=== PATIENT | male | born 1980 | race Caucasian/White ===

== ENCOUNTER 2016-10-17 20:45 | Emergency (ER) | payer MEDICARE, SELFPAY ==
[2016-10-17] MEDS ORDERED: cloNIDine HCl 0.1 MG TAB ONE (21:33)
[2016-10-17] MEDS ORDERED: Ondansetron ODT 4 MG TAB ONE (21:33)
[2016-10-17] MEDS ORDERED: Triple Antibiotic Oint 1 GM Packet ONE (21:33)
[2016-10-17] MEDS ORDERED: HYDROcodone/Acetaminophen 10/325 mg Tablet ONE (21:33)
[2016-10-17] MEDS ORDERED: Naproxen 500 MG TAB ONE (21:33)
[2016-10-17 21:52] LABS: #Basophils 0.1 thou/uL (0.0-0.2); #Eosinphils 0.4 thou/uL (0.0-0.7); #Lymphocytes 1.5 thou/uL (1.20-3.40); #Monocytes 0.8 thou/uL (0.11-0.59); #Neutrophils 10.2 thou/uL (1.40-6.50); %Basophils 0.6 % (0.0-1.0); %Eosinophils 3.4 % (0.0-10.0); %Lymphocytes 11.5 % (21.0-51.0); %Monocytes 6.4 % (0.0-10.0); %Neutrophils 78.1 % (42.0-75.0); Hemoglobin 15.2 g/dL (14.0-18.0); Mean Corpuscular HGB CONC 31.9 g/dL (32.0-36.0); Mean Corpuscular Hemoglobin 29.4 pg (27.0-31.0); Mean Corpuscular Volume 92.2 fl (80.0-94.0); Platelet Count 182 thou/uL (130-400); RBC Distribution Width 12.9 % (11.5-14.5); Red Blood Cell (RBC) Count 5.17 mill/uL (4.70-6.10)
--- NOTE | 2016-10-17 21:57 | CT ---
CT HEAD WITHOUT IV CONTRAST 10/17/16 HISTORY: Patient fell off a ladder approximately ten feet. Patient keeps repeating things. FINDINGS: There is no evidence of a hemorrhage, acute infarction, mass effect or midline shift. Scattered area s of decreased attenuation in the periventricular white matter which are nonspecific but likely refl ective of chronic small vessel ischemic changes. There is minimal mucosal thickening seen in each maxillary antrum. The remainder of the visualized p aranasal sinuses and right mastoid air cells are clear. There are postsurgical changes related to le ft mastoidectomy. No calvarial fracture is seen. IMPRESSION: 1. No acute intracranial abnormalities demonstrated. 2. Chronic small vessel ischemic changes. 3. Minimal sinus disease. POS: [facility]
--- NOTE | 2016-10-17 22:01 | CT ---
CT SCAN CERVICAL SPINE WITHOUT IV CONTRAST 10/17/16 HISTORY: Patient fell off a 10 foot ladder. Patient keeps repeating himself. TECHNIQUE: Contiguous axial CT images are obtained through the cervical spine from the skull base to the T2-3 l evel. Sagittal and coronal reformat images are provided. FINDINGS: There is minimal mucosal thickening seen in each maxillary antrum. Prevertebral soft tissues are wit hin normal limits. Lung apices are clear. Postsurgical changes related to left mastoidectomy are partially imaged. Vertebral body heights and intervertebral disc spaces are within normal limits. No fracture or subluxation is seen involving th e cervical spine. There are scattered anterior osteophytes seen in the cervical spine. There is stra ightening of the normal cervical lordotic curvature which may be related to muscle spasm or position ing. IMPRESSION: 1. No acute fracture or subluxation involving the cervical spine. 2. Minimal degenerative changes in the cervical spine. 3. Straightening of the normal cervical lordotic curvature which may be related to muscle spasm or positioning. POS: [facility]
--- NOTE | 2016-10-17 22:13 | CT ---
CT OF THE LUMBAR SPINE 10/17/16 COMPARISON: None. HISTORY: Fall, pain. TECHNIQUE: Serial axial CT imaging obtained at 2.5 mm intervals from the thoracolumbar junction through the mid sacrum without contrast. Coronal and sagittal reformatted imaging obtained. FINDINGS: Imaged nonosseous structures are grossly unremarkable aside from stranding of the subcutaneous fat p osteriorly at the axial level of the lumbosacral junction, right greater than left, suggesting subcu taneous fat contusion associated with recent fall. There are five lumbar type vertebral bodies. The vertebral body alignment appears normal within the lumbar spine. There is minimal anterior wedging of the T12 vertebral body, likely either physiologic in nature or associated with remote fracture. No acute fracture line is seen and there is no parasp inal soft tissue swelling. There is no evidence for an acute fracture within the lumbar spine. Assessment for central canal and/or neural foraminal stenosis is limited on routine CT. There are de generative end plate changes present at the L4-5 level, especially laterally on the right, with foca l subchondral sclerosis, osteophyte formation, and vacuum disc formation. There is no osseous cause of significant central canal stenosis within the lumbar spine. There is os teophyte extension into the right neural foramen at L4-5 with an associated at least mild degree of neural foraminal stenosis. IMPRESSION: Findings suggesting posttraumatic edema within the subcutaneous fat at the lumbosacral junction post eriorly, right greater than left. There is no evidence for an acute fracture within the lumbar spine . Mild anterior wedging of the T12 vertebral body as detailed above. POS: [facility]
[2016-10-17 22:16] LABS: Bilirubin Negative (Negative); Clarity Clear (Clear); Glucose, Urine (Dipstick) Negative (Negative); Leukocyte Negative (Negative); Nitrite Negative (Negative); Protein, Urine (Dipstick) Negative (Neg-Trace); Urobilinogen 0.2 mg/dL (0.2-1.0); pH, Urine 6.5 (5.0-9.0)
[2016-10-17 22:17] LABS: Blood, Urine Trace (Negative)
[2016-10-17 22:22] LABS: Bacteria/HPF 1+ HPF (None Seen); Crystals/HPF 1+ URIC ACID HPF (Negative); Squamous Epithelial 0-3 HPF (0-3); WBC/HPF None Seen HPF (0-3)
[2016-10-17] MEDS ORDERED: Cephalexin 500 MG CAP ONE (22:39)
== END 2016-10-17 23:00 | disposition home or self-care (01) ==
LOC: MADERS 20:45
DX: S06.0X0A Concussion without loss of consciousness, initial encounter (principal); S30.0XXA Contusion of lower back and pelvis, initial encounter; I10 Essential (primary) hypertension; E11.9 Type 2 diabetes mellitus without complications; F17.220 Nicotine dependence, chewing tobacco, uncomplicated; Z79.899 Other long term (current) drug therapy; W17.89XA Other fall from one level to another, initial encounter
CPT/HCPCS: 36415; 70450; 72125; 72131; 81001; 83690; 85025; Q0162

== ENCOUNTER 2016-11-20 09:29 | Emergency (ER) | payer MEDICARE ==
[2016-11-20 10:13] LABS: #Basophils 0.1 thou/uL (0.0-0.2); #Eosinphils 0.5 thou/uL (0.0-0.7); #Lymphocytes 2.7 thou/uL (1.20-3.40); #Neutrophils 5.8 thou/uL (1.40-6.50); %Basophils 1.5 % (0.0-1.0); %Lymphocytes 26.5 % (21.0-51.0); %Monocytes 9.6 % (0.0-10.0); %Neutrophils 57.5 % (42.0-75.0); Hemoglobin 14.3 g/dL (14.0-18.0); Mean Corpuscular HGB CONC 32.7 g/dL (32.0-36.0); Mean Corpuscular Hemoglobin 30.4 pg (27.0-31.0); Mean Platelet Volume 10.9 fL (7.4-10.4); Platelet Count 192 thou/uL (130-400); RBC Distribution Width 12.9 % (11.5-14.5); Red Blood Cell (RBC) Count 4.71 mill/uL (4.70-6.10)
[2016-11-20 10:24] LABS: ALT (SGPT) 25 U/L (8-55); AST (SGOT) 21 U/L (5-34); Albumin 4.1 g/dL (3.5-5.0); Alkaline Phosphatase 82 U/L (40-150); Anion Gap 13 mmol/L (10-20); BUN (Urea Nitrogen) 19 mg/dL (8.9-20.6); Bilirubin, Total 0.5 mg/dL (0.2-1.2); Calc. Creatinine Clearance 0 mL/min (70-130); Calcium 9.4 mg/dL (7.8-10.44); Carbon Dioxide 28 mmol/L (22-29); Chloride 100 mmol/L (98-107); Estimated GFR-MDRD 86; Globulin 2.7 g/dL (2.4-3.5); Glucose 95 mg/dL (70-105); Magnesium 2.1 mg/dL (1.6-2.6); Phosphorus 3.6 mg/dL (2.3-4.7); Protein, Total 6.8 g/dL (6.0-8.3); Sodium 137 mmol/L (136-145)
--- NOTE | 2016-11-20 10:40 | RAD ---
TWO VIEWS CHEST HISTORY: Hypertension. COMPARISON: 04/02/2010 FINDINGS: Normal cardiac silhouette. Pulmonary vessels and hilum are normal. No mass. No consolidation. No pneumothorax or osseous abnormalities. IMPRESSION: No acute cardiopulmonary process. POS: [facility]
[2016-11-20 10:43] LABS: CKMB 3.5 ng/mL (0-6.6); Troponin I Less than 0.010 ng/mL (< 0.028)
== END 2016-11-20 11:50 | disposition home or self-care (01) ==
LOC: MADERS 09:29
DX: I49.9 Cardiac arrhythmia, unspecified (principal); H91.92 Unspecified hearing loss, left ear; I10 Essential (primary) hypertension; E11.9 Type 2 diabetes mellitus without complications; F17.220 Nicotine dependence, chewing tobacco, uncomplicated; Z79.899 Other long term (current) drug therapy
CPT/HCPCS: 71020; 80053; 82553; 83735; 83880; 84100; 84443; 84484; 85025; 93005

== ENCOUNTER 2017-09-24 11:03 | Emergency (ER) | payer MEDICAID, MEDICARE ==
[2017-09-24] MEDS ORDERED: Ibuprofen 800 MG TAB ONE (11:24)
[2017-09-24] MEDS ORDERED: Lisinopril 10 MG TAB ONE (11:24)
[2017-09-24] MEDS ORDERED: HYDROcodone/Acetaminophen 5/325 mg Tablet ONE (11:24)
[2017-09-24] MEDS ORDERED: Clindamycin 150 MG CAP ONE (11:24)
== END 2017-09-24 11:20 | disposition home or self-care (01) ==
LOC: MADERS 11:03
DX: K02.9 Dental caries, unspecified (principal)
CPT/HCPCS: 99282

== ENCOUNTER 2017-11-08 23:24 | Emergency (ER) | payer MEDICARE ==
[2017-11-08 23:37] LABS: #Basophils 0.1 thou/uL (0.0-0.2); #Eosinphils 0.5 thou/uL (0.0-0.7); #Lymphocytes 2.9 thou/uL (1.20-3.40); #Monocytes 0.7 thou/uL (0.11-0.59); #Neutrophils 7.5 thou/uL (1.40-6.50); %Basophils 0.9 % (0.0-1.0); %Eosinophils 4.5 % (0.0-10.0); %Lymphocytes 24.8 % (21.0-51.0); %Monocytes 5.6 % (0.0-10.0); %Neutrophils 64.2 % (42.0-75.0); Hemoglobin 14.8 g/dL (14.0-18.0); Mean Corpuscular HGB CONC 33.4 g/dL (32.0-36.0); Mean Corpuscular Hemoglobin 29.9 pg (27.0-31.0); Mean Corpuscular Volume 89.5 fL (78.0-98.0); Mean Platelet Volume 9.1 fL (7.4-10.4); Platelet Count 219 thou/uL (130-400); RBC Distribution Width 12.3 % (11.5-14.5); Red Blood Cell (RBC) Count 4.95 mill/uL (4.70-6.10); White Blood Cell (WBC) Count 11.7 thou/uL (4.8-10.8)
[2017-11-08 23:53] LABS: Anion Gap 18 mmol/L (10-20); BUN (Urea Nitrogen) 10 mg/dL (8.9-20.6); Calc. Creatinine Clearance 0 mL/min (70-130); Carbon Dioxide 20 mmol/L (22-29); Chloride 105 mmol/L (98-107); Estimated GFR-MDRD Greater than 90; Glucose 116 mg/dL (70-105); Potassium 3.5 mmol/L (3.5-5.1); Sodium 139 mmol/L (136-145)
--- NOTE | 2017-11-08 23:57 | RAD ---
FRONTAL VIEW CHEST: 11/08/17 INDICATION: Chest pain. COMPARISON: 11/20/16. FINDINGS: The cardiac silhouette is stable, and prominent in size. there is no new consolidation or effusion. Mild elevation of the left hemidiaphragm. There is a linear radiopaque density, subcentimeter in size overlying the right hemidiaphragm, not further localized. IMPRESSION: Enlarged cardiac silhouette. Correlate clinically. No focal consolidation. POS: [facility]
[2017-11-09 00:09] LABS: ALT (SGPT) 54 U/L (8-55); AST (SGOT) 32 U/L (5-34); Albumin 4.1 g/dL (3.5-5.0); Alkaline Phosphatase 85 U/L (40-150); Anion Gap 18 mmol/L (10-20); BUN (Urea Nitrogen) 10 mg/dL (8.9-20.6); Bilirubin, Total Less than 0.2 mg/dL (0.2-1.2); Calc. Creatinine Clearance 0 mL/min (70-130); Carbon Dioxide 20 mmol/L (22-29); Chloride 105 mmol/L (98-107); Estimated GFR-MDRD Greater than 90; Globulin 2.5 g/dL (2.4-3.5); Glucose 117 mg/dL (70-105); Potassium 3.5 mmol/L (3.5-5.1); Protein, Total 6.6 g/dL (6.0-8.3); Sodium 139 mmol/L (136-145)
== END 2017-11-09 00:16 | disposition home or self-care (01) ==
LOC: MADERS 23:24
DX: R07.9 Chest pain, unspecified (principal); F17.220 Nicotine dependence, chewing tobacco, uncomplicated; I10 Essential (primary) hypertension; I49.9 Cardiac arrhythmia, unspecified; Z79.899 Other long term (current) drug therapy
CPT/HCPCS: 71045; 80048; 84484; 85025; 93005

== ENCOUNTER 2017-12-13 06:18 | Emergency (ER) | payer MEDICARE ==
[2017-12-13] MEDS ORDERED: Clindamycin 150 MG CAP ONE (07:57)
[2017-12-13] MEDS ORDERED: Fluconazole 100 MG TAB ONE (07:57)
== END 2017-12-13 08:14 | disposition home or self-care (01) ==
LOC: MADERS 06:18
DX: B37.2 Candidiasis of skin and nail (principal); L03.314 Cellulitis of groin; I49.9 Cardiac arrhythmia, unspecified; F17.220 Nicotine dependence, chewing tobacco, uncomplicated; Z79.899 Other long term (current) drug therapy
CPT/HCPCS: 99283

== ENCOUNTER 2018-02-27 03:14 | Emergency (ER) | payer MEDICARE ==
[2018-02-27] MEDS ORDERED: Ibuprofen 800 MG TAB ONE (03:47)
[2018-02-27] MEDS ORDERED: cloNIDine 0.1mg/24 Hour PATCH ONE (03:49)
[2018-02-27] MEDS ORDERED: Amoxicillin/Potassium Clav 875 MG TAB ONE (03:49)
[2018-02-27] MEDS ORDERED: cloNIDine 0.1 MG TAB ONE (03:50)
== END 2018-02-27 04:10 | disposition home or self-care (01) ==
LOC: MADERS 03:14
DX: K02.9 Dental caries, unspecified (principal); I49.9 Cardiac arrhythmia, unspecified; I10 Essential (primary) hypertension; F17.220 Nicotine dependence, chewing tobacco, uncomplicated; Z79.899 Other long term (current) drug therapy
CPT/HCPCS: 99282

== ENCOUNTER 2018-03-14 03:02 | Emergency (ER) | payer MEDICARE ==
[2018-03-14] MEDS ORDERED: Ketorolac Tromethamine 30 MG/ML VIAL ONE (03:34)
== END 2018-03-14 03:57 | disposition home or self-care (01) ==
LOC: MADERS 03:02
DX: K02.9 Dental caries, unspecified (principal); I10 Essential (primary) hypertension; I49.9 Cardiac arrhythmia, unspecified; F17.220 Nicotine dependence, chewing tobacco, uncomplicated; Z79.899 Other long term (current) drug therapy
CPT/HCPCS: 96372; J1885

== ENCOUNTER 2018-07-03 04:41 | Emergency (ER) | payer MEDICARE | END 2018-07-03 05:14 | disposition home or self-care (01) | LOC: MADERS 04:41 | DX: L23.7 Allergic contact dermatitis due to plants, except food (principal); I10 Essential (primary) hypertension; I49.9 Cardiac arrhythmia, unspecified; F17.220 Nicotine dependence, chewing tobacco, uncomplicated; Z79.899 Other long term (current) drug therapy | CPT/HCPCS: 99282 ==

== ENCOUNTER 2019-09-15 01:35 | Emergency (ER) | payer MEDICARE ==
[2019-09-15] MEDS ORDERED: Ventolin HFA Inhaler 60 PUFF INHALER ONE (01:58)
[2019-09-15] MEDS ORDERED: Nitroglycerin 50 MG/250 ML BOT 250 ML ONE (02:14)
[2019-09-15] MEDS ORDERED: Aspirin 325 MG TAB ONE (02:14)
[2019-09-15] MEDS ORDERED: Furosemide 20 MG/2 ML VIAL ONE (02:14)
[2019-09-15] MEDS ORDERED: Furosemide 40 MG/4 ML VIAL ONE (02:14)
[2019-09-15 02:18] LABS: #Basophils 0.2 thou/uL (0.0-0.2); #Eosinphils 0.9 thou/uL (0.0-0.7); #Lymphocytes 3.1 thou/uL (1.20-3.40); #Monocytes 1.2 thou/uL (0.11-0.59); #Neutrophils 8.2 thou/uL (1.40-6.50); %Basophils 1.3 % (0.0-1.0); %Eosinophils 6.8 % (0.0-10.0); %Monocytes 8.5 % (0.0-10.0); %Neutrophils 60.4 % (42.0-75.0); Hemoglobin 14.8 g/dL (14.0-18.0); Mean Corpuscular HGB CONC 31.3 g/dL (32.0-36.0); Mean Corpuscular Hemoglobin 29.2 pg (27.0-31.0); Mean Corpuscular Volume 93.2 fL (78.0-98.0); Mean Platelet Volume 10.7 fL (7.4-10.4); Platelet Count 288 thou/uL (130-400); RBC Distribution Width 13.6 % (11.5-14.5); Red Blood Cell (RBC) Count 5.09 mill/uL (4.70-6.10); White Blood Cell (WBC) Count 13.6 thou/uL (4.8-10.8)
[2019-09-15 02:28] LABS: Acetaminophen Less than 6.0 mcg/mL (10.0-30.0); Salicylate Less than 8.0 mg/dL (15.0-30.0)
[2019-09-15 02:30] LABS: ALT (SGPT) 48 U/L (8-55); AST (SGOT) 27 U/L (5-34); Albumin 4.1 g/dL (3.5-5.0); Alkaline Phosphatase 105 U/L (40-110); Anion Gap 18 mmol/L (10-20); BUN (Urea Nitrogen) 12 mg/dL (8.9-20.6); Bilirubin, Total 0.2 mg/dL (0.2-1.2); Calc. Creatinine Clearance 0 mL/min (70-130); Carbon Dioxide 23 mmol/L (22-29); Chloride 102 mmol/L (98-107); Estimated GFR-MDRD 67; Glucose 102 mg/dL (70-105); Lipase 22 U/L (8-78); Potassium 3.8 mmol/L (3.5-5.1); Protein, Total 7.1 g/dL (6.0-8.3); Sodium 139 mmol/L (136-145)
[2019-09-15 02:45] LABS: Amphetamine Not Detected (NotDetected); Barbiturates Screen Not Detected (NotDetected); Benzodiazepine Screen Not Detected (NotDetected); Cocaine Metabolite Screen Not Detected (NotDetected); Medtox Control Line Valid? VALID (VALID); Methadone Not Detected (NotDetected); Methamphetamine Not Detected (NotDetected); Opiate Screen Not Detected (NotDetected); Oxycodone Screen Not Detected (NotDetected); Phencyclidine (PCP) Not Detected (NotDetected); THC/Cannabinoid Screen Not Detected (NotDetected); Tricyclic Screen Not Detected (NotDetected)
[2019-09-15 02:46] LABS: Bilirubin Negative (Negative); Blood, Urine Trace (Negative); Clarity Clear (Clear); Glucose, Urine (Dipstick) Negative (Negative); Leukocyte Negative (Negative); Nitrite Negative (Negative); Protein, Urine (Dipstick) Negative (Neg-Trace); Urobilinogen 0.2 mg/dL (Less than 2)
[2019-09-15 02:52] LABS: Alcohol Less than 10 mg/dL (Less than 10)
[2019-09-15 02:53] LABS: RBC/HPF 0-3 HPF (0-3); Squamous Epithelial 0-3 HPF (0-3); WBC/HPF 0-3 HPF (0-3)
[2019-09-15 02:54] LABS: Bacteria/HPF None Seen HPF (None Seen)
[2019-09-15] MEDS ORDERED: methylPREDNISolone Sod Succ/PF 125 MG/2 ML VIAL ONE (02:56)
[2019-09-15] MEDS ORDERED: cefTRIAXone\\ROCEPHIN 1 GM VIAL ONE (02:56)
--- NOTE | 2019-09-15 07:51 | RAD ---
RADIOGRAPH CHEST 2 VIEW: DATE: 09/15/2019 HISTORY: 38-year-old male with dyspnea, cough, and wheezing FINDINGS: The thoracic aorta is mildly tortuous and ectatic, greater than typical for age. There is no evidence of airspace density, pulmonary edema, or pneumothorax. There is no pleural effusion. Transverse diameter of cardiac shadow at upper limits of normal. IMPRESSION: 1) No acute pulmonary findings. 2) ectasia of thoracic aorta.
== END 2019-09-15 03:34 | disposition short-term general hospital (02) ==
LOC: MADERS 01:35
DX: J81.0 Acute pulmonary edema (principal); R94.31 Abnormal electrocardiogram [ECG] [EKG]; I10 Essential (primary) hypertension; I49.9 Cardiac arrhythmia, unspecified; K02.9 Dental caries, unspecified; K03.81 Cracked tooth; F17.220 Nicotine dependence, chewing tobacco, uncomplicated; Z79.899 Other long term (current) drug therapy
CPT/HCPCS: 71046; 80053; 80306; 80307; 81003; 81015; 83690; 83880; 84443; 84484; 85025; 85379; 93005; 94760; 96365; 96375; J0696; J1940; J2930

== ENCOUNTER 2019-10-03 05:13 | Emergency (ER) | payer MEDICARE, OTHER ==
[2019-10-03] MEDS ORDERED: predniSONE 20 MG TAB ONE (05:35)
[2019-10-03 06:49] LABS: #Basophils 0.1 thou/uL (0.0-0.2); #Eosinphils 0.9 thou/uL (0.0-0.7); #Lymphocytes 2.2 thou/uL (1.20-3.40); #Neutrophils 9.3 thou/uL (1.40-6.50); %Basophils 0.7 % (0.0-1.0); %Eosinophils 6.7 % (0.0-10.0); %Lymphocytes 16.2 % (21.0-51.0); %Monocytes 7.6 % (0.0-10.0); %Neutrophils 68.8 % (42.0-75.0); Hemoglobin 13.3 g/dL (14.0-18.0); Mean Corpuscular HGB CONC 32.1 g/dL (32.0-36.0); Mean Corpuscular Hemoglobin 29.8 pg (27.0-31.0); Mean Corpuscular Volume 92.8 fL (78.0-98.0); Mean Platelet Volume 10.2 fL (7.4-10.4); Platelet Count 231 thou/uL (130-400); Red Blood Cell (RBC) Count 4.47 mill/uL (4.70-6.10); White Blood Cell (WBC) Count 13.5 thou/uL (4.8-10.8)
[2019-10-03 06:59] LABS: ALT (SGPT) 44 U/L (8-55); AST (SGOT) 28 U/L (5-34); Alkaline Phosphatase 84 U/L (40-110); Anion Gap 17 mmol/L (10-20); BUN (Urea Nitrogen) 15 mg/dL (8.9-20.6); Bilirubin, Total 0.2 mg/dL (0.2-1.2); Calc. Creatinine Clearance 0 mL/min (70-130); Carbon Dioxide 23 mmol/L (22-29); Chloride 107 mmol/L (98-107); Estimated GFR-MDRD 72; Globulin 2.2 g/dL (2.4-3.5); Glucose 109 mg/dL (70-105); Potassium 3.8 mmol/L (3.5-5.1); Protein, Total 6.2 g/dL (6.0-8.3); Sodium 143 mmol/L (136-145)
--- NOTE | 2019-10-03 08:14 | RAD ---
PORTABLE CHEST: HISTORY: Cough. COMPARISON: 2018 FINDINGS: Lungs appear clear. No focal infiltrates seen. Heart size upper normal and stable. IMPRESSION: No acute process or interval change apparent. POS: [facility]
[2019-10-04 13:53] LABS: SARS-CoV-2 MS2 Positive; SARS-CoV-2 N Gene Negative; SARS-CoV-2 S Gene Negative; SARS-CoV-2 by NAA Not Detected (NotDetected); SARS-CoV-2 orf1ab Negative
== END 2019-10-03 07:20 | disposition home or self-care (01) ==
LOC: MADERS 05:13
DX: J44.1 Chronic obstructive pulmonary disease with (acute) exacerbation (principal); I10 Essential (primary) hypertension; I49.9 Cardiac arrhythmia, unspecified; Z11.59 Encounter for screening for other viral diseases; Z79.899 Other long term (current) drug therapy; F17.220 Nicotine dependence, chewing tobacco, uncomplicated
CPT/HCPCS: 71045; 80053; 85025; 99285; U0003; 87635; J7512; J7620

== ENCOUNTER 2019-12-13 00:46 | Emergency (ER) | payer MEDICARE ==
[2019-12-13] MEDS ORDERED: predniSONE 20 MG TAB ONE (01:01)
[2019-12-13] MEDS ORDERED: Sodium Chloride For Inhalation 0.9% 3 ML NEB ONE (01:49)
[2019-12-13] MEDS ORDERED: Albuterol Sulfate 2.5 mg/0.5 ml Neb ONE (01:49)
[2019-12-13] MEDS ORDERED: methylPREDNISolone Sod Succ/PF 125 MG/2 ML VIAL ONE (03:00)
[2019-12-13 03:09] LABS: #Basophils 0.1 thou/uL (0.0-0.2); #Eosinphils 0.8 thou/uL (0.0-0.7); #Lymphocytes 1.4 thou/uL (1.20-3.40); #Monocytes 0.8 thou/uL (0.11-0.59); #Neutrophils 9.8 thou/uL (1.40-6.50); %Basophils 0.7 % (0.0-1.0); %Eosinophils 5.9 % (0.0-10.0); %Lymphocytes 10.6 % (21.0-51.0); %Monocytes 6.1 % (0.0-10.0); %Neutrophils 76.8 % (42.0-75.0); Hemoglobin 14.1 g/dL (14.0-18.0); Mean Corpuscular HGB CONC 32.2 g/dL (32.0-36.0); Mean Corpuscular Hemoglobin 30.2 pg (27.0-31.0); Mean Corpuscular Volume 93.9 fL (78.0-98.0); Mean Platelet Volume 9.9 fL (7.4-10.4); Platelet Count 219 thou/uL (130-400); RBC Distribution Width 13.3 % (11.5-14.5); Red Blood Cell (RBC) Count 4.67 mill/uL (4.70-6.10); White Blood Cell (WBC) Count 12.7 thou/uL (4.8-10.8)
[2019-12-13] MEDS ORDERED: Magnesium 2 GM/50 ML BAG (IN WATER) ONE (03:09)
[2019-12-13 03:22] LABS: ALT (SGPT) 48 U/L (8-55); AST (SGOT) 29 U/L (5-34); Albumin 4.1 g/dL (3.5-5.0); Alkaline Phosphatase 90 U/L (40-110); Anion Gap 14 mmol/L (10-20); BUN (Urea Nitrogen) 13 mg/dL (8.9-20.6); Bilirubin, Total 0.4 mg/dL (0.2-1.2); Calc. Creatinine Clearance 0 mL/min (70-130); Calcium 8.9 mg/dL (7.8-10.44); Carbon Dioxide 27 mmol/L (22-29); Chloride 102 mmol/L (98-107); Globulin 2.7 g/dL (2.4-3.5); Glucose 120 mg/dL (70-105); Potassium 4.1 mmol/L (3.5-5.1); Protein, Total 6.8 g/dL (6.0-8.3); Sodium 139 mmol/L (136-145)
--- NOTE | 2019-12-13 08:09 | RAD ---
XR Chest 1 View Portable HISTORY: Dyspnea COMPARISON: 10/03/2019 FINDINGS: The heart size is at upper limits of normal. The lungs are well expanded without focal area s of consolidation, pneumothorax or pleural effusions. IMPRESSION: No radiographic evidence of acute cardiopulmonary process.
== END 2019-12-13 04:20 | disposition short-term general hospital (02) ==
LOC: MADERS 00:46
DX: J44.1 Chronic obstructive pulmonary disease with (acute) exacerbation (principal); I10 Essential (primary) hypertension; F17.220 Nicotine dependence, chewing tobacco, uncomplicated; Z79.899 Other long term (current) drug therapy
CPT/HCPCS: 71045; 80053; 83880; 84484; 85025; 96365; 96375; J2930; J3475; J7512; J7611; J7620

== ENCOUNTER 2020-03-10 09:57 | Outpatient (CLI) | payer MEDICARE ==
[2020-03-10 10:39] LABS: ALT (SGPT) 40 U/L (8-55); AST (SGOT) 26 U/L (5-34); Albumin 4.1 g/dL (3.5-5.0); Alkaline Phosphatase 87 U/L (40-110); Anion Gap 16 mmol/L (10-20); BUN (Urea Nitrogen) 11 mg/dL (8.9-20.6); Bilirubin, Total 0.4 mg/dL (0.2-1.2); Calc. Creatinine Clearance 0 mL/min (70-130); Calcium 9.4 mg/dL (7.8-10.44); Carbon Dioxide 24 mmol/L (22-29); Chloride 103 mmol/L (98-107); Globulin 2.8 g/dL (2.4-3.5); Glucose 138 mg/dL (70-105); Potassium 3.7 mmol/L (3.5-5.1); Protein, Total 6.9 g/dL (6.0-8.3); Sodium 139 mmol/L (136-145)
== END 2020-03-10 09:58 | disposition home or self-care (01) ==
LOC: MADLAB 09:57
PROVIDERS: ATTEND Family Medicine
DX: I10 Essential (primary) hypertension (principal)
CPT/HCPCS: 36415; 80053

== ENCOUNTER 2020-05-14 20:21 | Emergency (ER) | payer MEDICARE ==
[2020-05-14] MEDS ORDERED: methylPREDNISolone Sod Succ/PF 125 MG/2 ML VIAL ONE (21:05)
--- NOTE | 2020-05-14 21:25 | RAD ---
RADIOGRAPH CHEST 2 VIEW: DATE: 05/14/2020 HISTORY: 39-year-old male with dyspnea COMPARISON: 12/13/2019 FINDINGS: The thoracic aorta is tortuous and ectatic. There is no evidence of airspace density, pulmonary edema , or pneumothorax. There is no pleural effusion. Cardiac size at upper limits of normal. No interval change. IMPRESSION: 1) No acute pulmonary findings. 2) ectasia of thoracic aorta.
[2020-05-14 21:40] LABS: #Basophils 0.1 thou/uL (0.0-0.2); #Eosinphils 1.1 thou/uL (0.0-0.7); %Eosinophils 7.8 % (0.0-10.0); Hemoglobin 15.3 g/dL (14.0-18.0); Mean Corpuscular Volume 90.6 fL (78.0-98.0)
[2020-05-14 21:55] LABS: #Lymphocytes 2.8 thou/uL (1.20-3.40); #Neutrophils 8.6 thou/uL (1.40-6.50); %Basophils 0.7 % (0.0-1.0); %Lymphocytes 20.8 % (21.0-51.0); %Monocytes 7.3 % (0.0-10.0); %Neutrophils 63.4 % (42.0-75.0); Mean Corpuscular HGB CONC 32.1 g/dL (32.0-36.0); Mean Platelet Volume 10.5 fL (7.4-10.4); Platelet Count 223 thou/uL (130-400); RBC Distribution Width 12.3 % (11.5-14.5); Red Blood Cell (RBC) Count 5.26 mill/uL (4.70-6.10); White Blood Cell (WBC) Count 13.5 thou/uL (4.8-10.8)
[2020-05-14 21:56] LABS: ALT (SGPT) 37 U/L (8-55); AST (SGOT) 25 U/L (5-34); Alkaline Phosphatase 105 U/L (40-110); Anion Gap 13 mmol/L (10-20); BUN (Urea Nitrogen) 14 mg/dL (8.9-20.6); Bilirubin, Total 0.2 mg/dL (0.2-1.2); Calc. Creatinine Clearance 0 mL/min (70-130); Calcium 9.5 mg/dL (7.8-10.44); Carbon Dioxide 31 mmol/L (22-29); Chloride 100 mmol/L (98-107); Globulin 2.8 g/dL (2.4-3.5); Glucose 108 mg/dL (70-105); Potassium 3.5 mmol/L (3.5-5.1); Protein, Total 6.8 g/dL (6.0-8.3); Sodium 140 mmol/L (136-145)
[2020-05-14 22:22] LABS: Base Excess-Venous 5.7 mmol/L (-2.0 to 3.0); Bicarbonate (HCO3v) 31.8 mmol/L (22.0-28.0); CO2 Tension (PvCO2) 49.9 mmHg (40.0-50.0); Calcium, Ionized 1.17 mmol/L (1.15-1.33); Chloride 100 mmol/L (98-107); Hemoglobin - Calc 15.7 g/dL (14.0-18.0); Potassium 3.5 mmol/L (3.5-5.1); Sodium 140 mmol/L (138-145); T. Carbon Dioxide 33.3 mmol/L (22.0-28.0); vO2 Saturation-calc 99.8 % (60.0-85.0)
== END 2020-05-14 23:06 | disposition home or self-care (01) ==
LOC: MADERS 20:21
DX: J44.1 Chronic obstructive pulmonary disease with (acute) exacerbation (principal); I10 Essential (primary) hypertension; I49.9 Cardiac arrhythmia, unspecified; F17.220 Nicotine dependence, chewing tobacco, uncomplicated; Z79.899 Other long term (current) drug therapy
CPT/HCPCS: 71046; 80053; 82330; 82803; 83880; 84484; 85014; 85025; 96374; J2930; J7620

== ENCOUNTER 2020-11-11 00:22 | Emergency (ER) | payer MEDICARE ==
[2020-11-11] MEDS ORDERED: Fluconazole 100 MG TAB ONE (01:30)
== END 2020-11-11 01:58 | disposition home or self-care (01) ==
LOC: MADERS 00:22
DX: B35.6 Tinea cruris (principal); J44.9 Chronic obstructive pulmonary disease, unspecified; I10 Essential (primary) hypertension; I49.9 Cardiac arrhythmia, unspecified; F17.210 Nicotine dependence, cigarettes, uncomplicated; Z79.899 Other long term (current) drug therapy
CPT/HCPCS: 36416; 99283